=== PATIENT | female | born 1940 | race Caucasian/White ===

== ENCOUNTER 2020-11-29 14:44 | Inpatient (IN) | payer OTHER ==
[~2020-11-29] VITALS: Ht 157.5 cm; Wt 68.9 kg
[2020-11-29 15:08] VITALS: BP 165/65
--- NOTE | 2020-11-29 15:10 | NUR ---
80 y/o F [place] [facility] [place] and desaturation at 0800 this morning. Per EMS, staff reported difficulty breathing since 0800 this morning and desaturation to 87% on 2L NC @ 1130. Patient SpO2 90% on 4L NC. Pt noted with productive cough and rhonchi throughout lung bowen. Pt denies nausea, vomiting, diarrhea, chest pain, headache, blurry vision, fever, chills, body pain. EMS states patient wanted ER evaluation for possible aspiration risk. Pt denies choking on any fluids or food prior to arrival. SpO2 97% on 4L by NC; patient baseline sat @ 86% on room air. RR 14 even/unlabored, BP 165/65. Pt placed into gown and lapidarist. Bed locked in lowest position, side rails x 2, call light in reach. PMH: CVA (hemiplegia) left sided deficits Meds: ASA, atorvastatin, metoprolol A: zofran, PCN
--- NOTE | 2020-11-29 15:20 | NUR ---
Dr. Gutierrez is evaluating patient at bedside
--- NOTE | 2020-11-29 15:39 | NUR ---
Lab at bedside
[2020-11-29 15:55] LABS: BASOPHILS % (AUTO) 0.5 % (0.0-2.0); HEMATOCRIT 32.4 % (36-48); HEMOGLOBIN 10.7 g/dL (12.0-16.0); LYMPHOCYTES # (AUTO) 0.8 K/uL (2.5-16.5); LYMPHOCYTES % (AUTO) 11.4 % (20.5-51.1); MEAN CORPUSCULAR HEMOGLOBIN 28 pg (27-31); MEAN CORPUSCULAR HGB CONC 33 g/dL (33-37); MEAN CORPUSCULAR VOLUME 83.9 fL (80-94); MONOCYTES # (AUTO) 0.9 K/uL (0.8-1.0); MONOCYTES % (AUTO) 11.8 % (1.7-9.3); NEUTROPHILS # (AUTO) 5.7 K/uL (1.8-7.7); NEUTROPHILS % (AUTO) 76.3 % (42.2-75.2); PLATELET COUNT (AUTO) 273 K/uL (140-450); RED BLOOD CELL COUNT(AUTO) 3.86 MIL/uL (4.20-5.40); RED CELL DISTRIBUTION WIDTH 15.1 % (11.6-13.7); WHITE BLOOD COUNT (AUTO) 7.4 K/uL (4.8-10.8)
[2020-11-29 16:11] LABS: ALBUMIN 2.8 g/dL (3.4-5.0); ANION GAP 10.4 (8-16); ASPARTATE AMINOTRANSFERASE 47 U/L (15-37); CARBON DIOXIDE 35.2 mmol/L (21-32); CHLORIDE 95 mmol/L (98-107); CREATININE 0.6 mg/dL (0.6-1.3); GLUCOSE 108 mg/dL (74-106); SODIUM SERUM 138 mmol/L (136-145); TOTAL BILIRUBIN 0.7 mg/dL (0.0-1.0); UREA NITROGEN, BLOOD 17 mg/dL (7-18)
[2020-11-29 16:15] LABS: POTASSIUM 2.6 mmol/L (3.5-5.1)
--- NOTE | 2020-11-29 16:40 | NUR ---
Patient resting in position of comfort with youth nutritional monitor in place. Denies SOB, chest pain, nausea. Bed locked in lowest position, side rails x 1
[2020-11-29] MEDS ORDERED: POTASSIUM CHLORIDE 10 MEQ TABER PO ONE (17:00)
[2020-11-29] MEDS ORDERED: AZITHROMYCIN 250 MG TAB PO ONE (17:00)
[2020-11-29] MEDS ORDERED: POTASSIUM CHL 20 MEQ/NACL 0.9% 1,000 ML IV ONE (17:00)
[2020-11-29] MEDS ORDERED: cefTRIAXone 1,000 MG VIAL ONE (17:10)
--- NOTE | 2020-11-29 18:30 | NUR ---
Spoke with Janine and provided status update; Janine made aware pt wants her to visit.
--- NOTE | 2020-11-29 18:59 | NUR ---
Dr. Gutierrez is reevaluating patient at bedside with Janine (daughter) at bedside.
[2020-11-29] MEDS ORDERED: METO25TE2 PO (19:27)
[2020-11-29] MEDS ORDERED: ASPI-1822 PO (19:27)
[2020-11-29] MEDS ORDERED: ATOR10TA PO (19:27)
[2020-11-29] MEDS ORDERED: DOCUSATE SODIUM 100 MG GELCAP PO PRN (20:00)
[2020-11-29] MEDS ORDERED: LORazepam 2 MG/ML VIAL IVP PRN (20:00)
[2020-11-29] MEDS ORDERED: ACETAMINOPHEN 325 MG TAB PO PRN (20:00)
[2020-11-29] MEDS ORDERED: MORPHINE SULFATE 2 MG/ML SYR IVP PRN (20:00)
[2020-11-29] MEDS ORDERED: ZOLPIDEM 10 MG TAB PO PRN (20:00)
[2020-11-29] MEDS ORDERED: HEPARIN PER PHARMACY MC PRN (20:00)
--- NOTE | 2020-11-29 20:00 | NUR ---
RESTING COMFORTABLY WITH DAUGHTER AT BEDSIDE. WARM BLANKET GIVEN
--- NOTE | 2020-11-29 22:00 | NUR ---
RESTING COMFORTABLY WITH HOB ELEVATED. O2 SAT REMAINS 94% ON 4L FIO2
[2020-11-29] MEDS ORDERED: metroNIDAZOLE 500 MG/NS PREMIX 100 ML IV ONE (22:22)
[2020-11-29] MEDS: METOPROLOL SUCCINATE 50 MG TABER PO SCH (22:34)
[2020-11-29] MEDS: ATORVASTATIN 20 MG TAB PO SCH (22:34)
[2020-11-29] MEDS: metroNIDAZOLE 250 MG/NS PREMIX 50 ML IV SCH (22:35)
[2020-11-29] MEDS: NACL 0.9% 1,000 ML IV SCH (22:37)
[2020-11-29 23:12] LABS: PROTHROMBIN TIME 11.6 secs (10.8-13.4)
[2020-11-30] MEDS: hePARIN / DEXT 5% PREMIX 250 ML IV SCH ×2 (01:08→09:12)
--- NOTE | 2020-11-30 02:00 | NUR ---
RESTING COMFORTABLY, REPOSITIONED. HEPARIN GTT CONTINUES
--- NOTE | 2020-11-30 04:00 | NUR ---
OCCASIIONAL THICK, CONGESTED COUGH NOTED
[2020-11-30] MEDS: metroNIDAZOLE 250 MG/NS PREMIX 50 ML IV SCH (05:21)
[2020-11-30] MEDS ORDERED: metroNIDAZOLE 500 MG/NS PREMIX 100 ML IV ONE (05:21)
[2020-11-30] MEDS: ALBUTEROL SULFATE/IPRATROPIU 3 ML SOL IH PRN ×2 (06:56→19:30)
--- NOTE | 2020-11-30 07:12 | NUR ---
RECEIVED REPORT FROM FAUSTINO SOLIZ. TRANSFER OF CARE AT THIS TIME.
--- NOTE | 2020-11-30 07:18 | NUR ---
PT RESTING, HOB ELEVATED FOR COMFORT, VSS, WILL CONTINUE TO MONIOTOR.
--- NOTE | 2020-11-30 07:20 | NUR ---
STRAIGHT CATHED FOR UA, URINE SENT TO LAB
[2020-11-30 07:27] LABS: BASOPHILS % (AUTO) 0.4 % (0.0-2.0); HEMATOCRIT 31.3 % (36-48); HEMOGLOBIN 10.3 g/dL (12.0-16.0); LYMPHOCYTES # (AUTO) 1.1 K/uL (2.5-16.5); LYMPHOCYTES % (AUTO) 15.7 % (20.5-51.1); MEAN CORPUSCULAR HEMOGLOBIN 28 pg (27-31); MEAN CORPUSCULAR HGB CONC 33 g/dL (33-37); MEAN CORPUSCULAR VOLUME 85.4 fL (80-94); MONOCYTES # (AUTO) 0.7 K/uL (0.8-1.0); MONOCYTES % (AUTO) 9.1 % (1.7-9.3); NEUTROPHILS # (AUTO) 5.4 K/uL (1.8-7.7); NEUTROPHILS % (AUTO) 74.8 % (42.2-75.2); PLATELET COUNT (AUTO) 253 K/uL (140-450); RED BLOOD CELL COUNT(AUTO) 3.67 MIL/uL (4.20-5.40); WHITE BLOOD COUNT (AUTO) 7.2 K/uL (4.8-10.8)
[2020-11-30 07:44] LABS: ANION GAP 10.8 (8-16); CARBON DIOXIDE 32.2 mmol/L (21-32); CHLORIDE 101 mmol/L (98-107); CREATININE 0.6 mg/dL (0.6-1.3); GLUCOSE 100 mg/dL (74-106); SODIUM SERUM 141 mmol/L (136-145); UREA NITROGEN, BLOOD 17 mg/dL (7-18)
--- NOTE | 2020-11-30 08:24 | NUR ---
GAVE REPORT TO FAUSTINO JEWELL FOR PENDING TRANSFER 10MINUTES.
--- NOTE | 2020-11-30 08:59 | NUR ---
Patient will be admitted to care of DR. REGALADO. Admited to TELE. Will go to room 120A. Belongings list completed. Report to FAUSTINO JEWELL.
--- NOTE | 2020-11-30 09:00 | NUR ---
Patient admitted to tele floor rm 120A from ED via rney. Patient transferred to bed with mod assist. Right hand IV 22G intact and running heparin @ 750 unit/hr. Patient is alert and oriented x 4, respirations even & nonlabored on O2 @ 4L/min. Oriented patient to room and unit, able to verbalized understanding. Call light placed within reach.
--- NOTE | 2020-11-30 09:15 | NUR ---
Heparin drip rate adjusted to 600unit/hr per protocol.
[2020-11-30] MEDS: ASPIRIN 81 MG TAB.CHEW PO SCH (10:12)
[2020-11-30] MEDS: METOPROLOL SUCCINATE 50 MG TABER PO SCH ×2 (10:12→21:20)
[2020-11-30 12:00] VITALS: BP 157/64
[2020-11-30] MEDS: NACL 0.9% 1,000 ML IV SCH (12:50)
[2020-11-30] MEDS ORDERED: metroNIDAZOLE 250 MG TAB PO SCH (14:06)
[2020-11-30] MEDS: AZITHROMYCIN 500 MG in DEXTROSE 5% 250 ML IV SCH (14:56)
--- NOTE | 2020-11-30 15:04 | NUR ---
PATIENT HAS BEEN SCREENED AND CATEGORIZED MODERATE NUTRITION RISK. PATIENT WILL BE SEEN WITHIN 3-5 DAYS OF ADMISSION. 12/02/20 12/04/[address]
--- NOTE | 2020-11-30 15:14 | NUR ---
DC PLANNING: FELICIA SPOKE WITH THE PATIENT AND HER DAUGHTER JERMAINE AT BEDSIDE. THE PATIENT WAS ALERT BUT NON-VERBAL SECONDARY TO RECENT CVA AND PNA. [place] CUR[place] [facility] FOR THREE WEEKS FOR REHAB POST CVA. SHE REQUIRES STANDBY ASSIST WHEN AMBULATING AND USES A FWW AND IS ABLE TO TOLERATE 75 FEET. SHE REQUIRES ASSISTANCE WITH ADL'S AND WILL RET[place] [facility] [place] SHE IS STABLE FOR DISCHARGE. JERMAINE DOES PLAN ON TAKING HER MOTHER HOME ONCE SHE COMPLETES HER REH[place] [facility] CM WILL FOLLOW FOR NEEDS. Addendum: 12/04/[address] CM DC PLANNING: FELICIA SPOKE WITH RYANN [place] [facility] [place]ARDING THE [place] O2 USE, STATES [facility] [place]IENT BACK ON 5-6 LITERS NC. THE PATIENT IS CURRENTLY AT 8L NC, DESATTED TO 83% THIS MORNING ON RA. FELICIA SPOKE WITH DR CHAVEZ TO ENDORSE O2 FLOW FOR [facility], IN AGREEMENT WITH RT WEANING PATIENT DOWN. FELICIA THEN SPOKE WITH RT DENNIS, HE WILL START LOWERING PATIENTS O2 TO TOLERANCE. CM WILL FOLLOW FOR NEEDS. Addendum: 12/06/[address] CM DC PLANNING: FELICIA SPOKE WITH THE PATIENTS DAUGHTER JERMAINE AT BEDSIDE REGARDING REFERRING THE PATIENT TO [facility]. THE PATIENT IS ON O2 12L, IV ABX AND IS PROGRESSING SLOWLY WITH PHYSICAL THERAPY. JERMAINE IS IN AGREEMENT WITH REFERRING THE PATIENT TO [facility], ORDER RECEIVED, CM FAXED CLINICAL INFORMATION TO [facility]. ALSO SPOKE WITH OBDULIA FROM [facility] TO ENDORSE THE REFERRAL. FELICIA WILL FOLLOW FOR NEEDS. Addendum: 12/07/[address] CM DC PLANNING: FELICIA WAS INFORMED BY DANIEL STEINER [facility] THAT THE PATIENT HAS BEEN ACCEPTED, NOW WAITING FOR A BED. DR. MIKAYLA ZHONG TO FOLLOW, THE PATIENTS DAUGHTER JERMAINE WAS ALSO UPDATED ON THE ARRANGEMENTS. FELICIA WILL FOLLOW FOR NEEDS. Addendum: 12/07/[address] CM DC PLANNING: NO CONFIRMATION OF A BED YET AT [facility]. IF PATIENT DC'S THIS [facility] WILL NEED TO BE CALLED FOR TRANSPORT WITH O2 AND TELEMETRY MONITORING THE PATIENT HAS MEDICARE. [facility]'S NUMBER IS [phone]. FELICIA WILL FOLLOW FOR NEEDS. Addendum: 12/10/20 at [address] CM DC PLANNING: FELICIA SPOKE WITH OBDULIA AT [facility], NO BEDS AVAILABLE YET. UPDATED CLINICALS FAXED TO FELICIA STEINER ALSO UPDATED THE PATIENT AND HER DAUGHTER JERMAINE. THE PATIENT REMAINS AT 8L O2 PER NC, CONTINUES TO WORK WITH P.T.. FELICIA WILL FOLLOW FOR NEEDS. Addendum: 12/11/[address] CM DC PLANNING: THE PATIENT HAS BEEN ASSIGNED A BED AT [facility]. THE CLINICA LIAISON OBDULIA MET WITH THE PATIENT AND HER DAUGHTER JERMAINE AT BEDSIDE TO ANSWER ANY QUESTIONS THEY MIGHT HAVE, BOTH STATE THEY ARE IN AGREEMENT WITH THE PLAN TO TRANSFER TO [facility] TODAY. THE PATIENT IS ASSIGNED ROOM 207C, DR. MIKAYLA ZHONG TO FOLLOW. NUMBER TO CALL REPORT IS [phone], THE PATIENT WILL BE PICKED UP BY [facility] AT 1800, BLS WITH O2 AT 8 L NC. FACILITY PHONE NUMBER AND [employer] SUPERVISOR TIME ENDORSED TO THE PATIENTS FAUSTINO SAAVEDRA CM WILL FOLLOW FOR NEEDS.
--- NOTE | 2020-11-30 15:30 | NUR ---
PTT - 52.9 therapeutic level. Patient remains on heparin drip @ 600 units/hr to right hand. Patient resting in bed, respirations even & nonlabored on O2 @ 4L/min. Call light within reach.
[2020-11-30 16:00] VITALS: BP 146/67
--- NOTE | 2020-11-30 19:00 | NUR ---
Patient received in bed alert and oriented x2. Patient SpO2 95% on 4L NC. Pt noted with productive cough and rhonchi throughout lung bowen. Pt denies nausea, vomiting, diarrhea, chest pain, headache, blurry vision, fever, chills, body pain. Patient requires maximal assistance. patient baseline sat @ 92% on room air. RR 14 even/unlabored. Pt placed into gown and night monitor. Bed locked in lowest position, side rails x 2, call light in reach. Rn educated patient to fall and safety interventions, medical management and Rn plan of care. No acute distress noted. Continued with medical management. No acute distress noted. Vital signs within parameter.
[2020-11-30 20:00] VITALS: BP 138/74
[2020-11-30] MEDS: ATORVASTATIN 20 MG TAB PO SCH (21:19)
[2020-11-30] MEDS: metroNIDAZOLE 250 MG TAB PO SCH (21:20)
[2020-12-01 02:51] LABS: PROTHROMBIN TIME 11.9 secs (10.8-13.4)
[2020-12-01 04:00] VITALS: BP 132/70
[2020-12-01] MEDS: metroNIDAZOLE 250 MG TAB PO SCH ×3 (05:34→21:45)
[2020-12-01] MEDS: NACL 0.9% 1,000 ML IV SCH ×2 (05:35→22:10)
[2020-12-01 07:01] LABS: ANION GAP 12.7 (8-16); CHLORIDE 101 mmol/L (98-107); CREATININE 0.6 mg/dL (0.6-1.3); GLUCOSE 94 mg/dL (74-106); SODIUM SERUM 141 mmol/L (136-145); UREA NITROGEN, BLOOD 13 mg/dL (7-18)
[2020-12-01 07:02] LABS: BASOPHILS % (AUTO) 0.3 % (0.0-2.0); HEMATOCRIT 28.6 % (36-48); HEMOGLOBIN 9.4 g/dL (12.0-16.0); LYMPHOCYTES # (AUTO) 1.3 K/uL (2.5-16.5); LYMPHOCYTES % (AUTO) 17.7 % (20.5-51.1); MEAN CORPUSCULAR HEMOGLOBIN 28 pg (27-31); MEAN CORPUSCULAR HGB CONC 33 g/dL (33-37); MEAN CORPUSCULAR VOLUME 85.3 fL (80-94); MONOCYTES # (AUTO) 0.7 K/uL (0.8-1.0); NEUTROPHILS # (AUTO) 5.5 K/uL (1.8-7.7); PLATELET COUNT (AUTO) 242 K/uL (140-450); RED BLOOD CELL COUNT(AUTO) 3.35 MIL/uL (4.20-5.40); RED CELL DISTRIBUTION WIDTH 14.9 % (11.6-13.7); WHITE BLOOD COUNT (AUTO) 7.5 K/uL (4.8-10.8)
--- NOTE | 2020-12-01 07:30 | NUR ---
RECEIVED REPORT FROM AM NURSE. PT IN BED WITH HOB ELEVATED. AOX2, ABLE TO MAKE NEEDS KNOWN. NO C/O PAIN, NO RESPIRATORY DISTRESS BUT O2SAT 89% ON 4L NC, RT AT BEDSIDE, PLACED ON SIMPLE MASK 9L, O2SAT BACK TO 96%. PT NON AMBULATORY. BOWEL AND BLADDER INCONTINENT. IV SITE 22G ON R HAND AND 22G ON RFA RUNNING NS AT 60CC/HR, HEPARIN DRIP 600U/HR. SKIN INTACT. SAFETY AND FALL PRECAUTIONS IN PLACE. CALL LIGHT WITHIN REACH. WILL CONTINUE TO MONITOR
[2020-12-01 08:00] VITALS: BP 140/72
[2020-12-01 08:02] LABS: POTASSIUM 2.7 mmol/L (3.5-5.1)
--- NOTE | 2020-12-01 08:50 | NUR ---
DUE MEDS GIVEN. TOLERATED PO MEDS WELL
[2020-12-01] MEDS: ASPIRIN 81 MG TAB.CHEW PO SCH (09:32)
[2020-12-01] MEDS: METOPROLOL SUCCINATE 50 MG TABER PO SCH ×2 (09:32→21:45)
[2020-12-01] MEDS ORDERED: POTASSIUM CHLORIDE 40 MEQ, LIDOCAINE MPF 1% 25 MG in NACL 0.9% 250 ML IV SCH (10:00)
--- NOTE | 2020-12-01 12:45 | NUR ---
HUONG CARE DONE. TURNED AND REPOSITIONED PT
--- NOTE | 2020-12-01 13:00 | NUR ---
PT IN BED, FAMILY AT BEDSIDE
[2020-12-01] MEDS: AZITHROMYCIN 500 MG in DEXTROSE 5% 250 ML IV SCH (15:16)
--- NOTE | 2020-12-01 15:22 | NUR ---
PT ASLEEP IN BED AT THIS TIME. NO RESPIRATORY DISTRESS, FLACC 0
[2020-12-01] MEDS: hePARIN / DEXT 5% PREMIX 250 ML IV SCH (15:23)
[2020-12-01 16:00] VITALS: BP 148/69
--- NOTE | 2020-12-01 18:00 | NUR ---
INSERTED IV ON RAC 20G FOR CT ANGIO CHEST
--- NOTE | 2020-12-01 19:00 | NUR ---
PATIENT RECEIVED IN BED CALM AND COOPERATIVE, AOX2, ABLE TO MAKE NEEDS KNOWN. NO C/O PAIN, NO RESPIRATORY DISTRESS NOTED. O2SAT 89% ON 4L NC, RT AT BEDSIDE, PLACED ON SIMPLE MASK 9L, O2SAT BACK TO 96%. PT NON AMBULATORY. BOWEL AND BLADDER INCONTINENT. IV SITE 22G ON R HAND AND 22G ON RFA RUNNING NS AT 60CC/HR, HEPARIN DRIP 600U/HR. PATIENT CALM AND COOPERATIVE. REQUIRES ASSISTANCE WITH ADL'S. SKIN INTACT. SAFETY AND FALL PRECAUTIONS IN PLACE. CALL LIGHT WITHIN REACH. WILL CONTINUE TO MONITOR. NO ACUTE DISTRESS NOTED.
[2020-12-01] MEDS: ALBUTEROL SULFATE/IPRATROPIU 3 ML SOL IH PRN (19:36)
[2020-12-01] MEDS: ATORVASTATIN 20 MG TAB PO SCH (21:45)
[2020-12-02] VITALS: BP 136/70
[2020-12-02] MEDS: POTASSIUM CHLORIDE 10 MEQ TABER PO PRN (05:01)
[2020-12-02] MEDS: MAG SULF 2000 MG/WATER PREMIX 50 ML IV PRN (05:17)
[2020-12-02] MEDS: metroNIDAZOLE 250 MG TAB PO SCH ×3 (05:50→21:05)
[2020-12-02 06:47] LABS: BASOPHILS % (AUTO) 0.3 % (0.0-2.0); EOSINOPHILS % (AUTO) 0.1 % (0.0-4.0); HEMATOCRIT 29.8 % (36-48); HEMOGLOBIN 9.9 g/dL (12.0-16.0); LYMPHOCYTES # (AUTO) 1.3 K/uL (2.5-16.5); LYMPHOCYTES % (AUTO) 15.6 % (20.5-51.1); MEAN CORPUSCULAR HEMOGLOBIN 28 pg (27-31); MEAN CORPUSCULAR HGB CONC 33 g/dL (33-37); MEAN CORPUSCULAR VOLUME 85.1 fL (80-94); MONOCYTES # (AUTO) 0.7 K/uL (0.8-1.0); MONOCYTES % (AUTO) 8.7 % (1.7-9.3); NEUTROPHILS # (AUTO) 6.3 K/uL (1.8-7.7); NEUTROPHILS % (AUTO) 75.3 % (42.2-75.2); PLATELET COUNT (AUTO) 263 K/uL (140-450); RED CELL DISTRIBUTION WIDTH 14.8 % (11.6-13.7); WHITE BLOOD COUNT (AUTO) 8.3 K/uL (4.8-10.8)
[2020-12-02 06:55] LABS: ANION GAP 12.1 (8-16); CARBON DIOXIDE 29.8 mmol/L (21-32); CHLORIDE 100 mmol/L (98-107); CREATININE 0.5 mg/dL (0.6-1.3); GLUCOSE 96 mg/dL (74-106); SODIUM SERUM 139 mmol/L (136-145); UREA NITROGEN, BLOOD 10 mg/dL (7-18)
[2020-12-02 06:58] LABS: POTASSIUM 2.9 mmol/L (3.5-5.1)
[2020-12-02 08:00] VITALS: BP 160/84
--- NOTE | 2020-12-02 08:22 | NUR ---
PT IS AWAKE ALERT X2 SLEEPING IN THE BED NO VISIBLE SOB NOTED. ON PUREE DIET. PT IS ON HEPARIN DRIP RECEIVING 600 UNITS/HR. POTASSIUM IS 2.9 AND MG 1.4 WILL REPLACE IT. PT HAS IV ACCESS ON RIGHT AC AND RIGHT HAND. POC DISCUSSED AND WILL CONTINUE TO FOLLOW.
[2020-12-02] MEDS: METOPROLOL SUCCINATE 50 MG TABER PO SCH ×2 (09:02→21:04)
[2020-12-02] MEDS: ASPIRIN 81 MG TAB.CHEW PO SCH (09:02)
--- NOTE | 2020-12-02 09:24 | NUR ---
CLARIFIED LAST PTT WITH PHARMACIST AND ADJUSTED DOSE. GAVE 1900 UNITS OF HEPARIN BOLUS AND INCREASED DOSE TO 750 UNITS. NO S/S OF BLEEDING NOTED. WILL CONTINUE TO MONITOR PT FOR BLEEDING
[2020-12-02] MEDS: MAG SULF 2000 MG/WATER PREMIX 100 ML IV SCH ×2 (10:44→12:54)
[2020-12-02] MEDS: POTASSIUM CHLORIDE 10 MEQ TABER PO SCH (10:45)
[2020-12-02] MEDS: NACL 0.9% 1,000 ML IV SCH (14:50)
[2020-12-02] MEDS: AZITHROMYCIN 500 MG in DEXTROSE 5% 250 ML IV SCH (15:05)
[2020-12-02 15:57] LABS: PROTHROMBIN TIME 12.2 secs (10.8-13.4)
[2020-12-02 16:00] VITALS: BP 160/64
--- NOTE | 2020-12-02 19:26 | NUR ---
ENDORSED THE NIGHT NURSE FOR CONTINUITY OF CARE. PT IS STABLE.
[2020-12-02] MEDS: ATORVASTATIN 20 MG TAB PO SCH (21:04)
[2020-12-03 04:00] VITALS: BP 167/64
[2020-12-03] MEDS: metroNIDAZOLE 250 MG TAB PO SCH ×3 (05:58→21:00)
[2020-12-03] MEDS: hePARIN / DEXT 5% PREMIX 250 ML IV SCH ×2 (06:00→23:42)
[2020-12-03 06:27] LABS: BASOPHILS # (AUTO) 0.1 K/uL (0.00-0.22); BASOPHILS % (AUTO) 0.6 % (0.0-2.0); EOSINOPHILS % (AUTO) 0.4 % (0.0-4.0); HEMATOCRIT 30.3 % (36-48); HEMOGLOBIN 10.2 g/dL (12.0-16.0); LYMPHOCYTES # (AUTO) 1.1 K/uL (2.5-16.5); LYMPHOCYTES % (AUTO) 10.9 % (20.5-51.1); MEAN CORPUSCULAR HEMOGLOBIN 29 pg (27-31); MEAN CORPUSCULAR HGB CONC 34 g/dL (33-37); MEAN CORPUSCULAR VOLUME 84.4 fL (80-94); MONOCYTES # (AUTO) 0.8 K/uL (0.8-1.0); MONOCYTES % (AUTO) 7.6 % (1.7-9.3); NEUTROPHILS % (AUTO) 80.5 % (42.2-75.2); PLATELET COUNT (AUTO) 292 K/uL (140-450); RED BLOOD CELL COUNT(AUTO) 3.58 MIL/uL (4.20-5.40)
[2020-12-03 06:47] LABS: ANION GAP 17.4 (8-16); CARBON DIOXIDE 26.5 mmol/L (21-32); CHLORIDE 98 mmol/L (98-107); CREATININE 0.3 mg/dL (0.6-1.3); GLUCOSE 95 mg/dL (74-106); POTASSIUM 3.9 mmol/L (3.5-5.1); SODIUM SERUM 138 mmol/L (136-145); UREA NITROGEN, BLOOD 7 mg/dL (7-18)
[2020-12-03] MEDS: NACL 0.9% 1,000 ML IV SCH (06:54)
--- NOTE | 2020-12-03 07:40 | NUR ---
Assumed care last night. A/O able to verbalize needs. Did hernando care. Changed incontinence pad. On Heparin drip. She has had 2 therapeutic readings. Next PTT shall at 2300 tonight. Will endorse to AM FAUSTINO.
--- NOTE | 2020-12-03 08:04 | NUR ---
RECEIVED REPORT FROM TRANSISTOR TESTER NURSE. PT IN BED WITH HOB ELEVATED. AOX2, ABLE TO MAKE NEEDS KNOWN. NO C/O PAIN, NO RESPIRATORY DISTRESS O2SAT 94% ON 8L NC, AND SIMPLE MASK 9L. PT NON AMBULATORY. BOWEL AND BLADDER INCONTINENT. IV SITE 22G ON R HAND AND 22G IN AC, AND 22G ON RFA RUNNING NS AT 60CC/HR, HEPARIN DRIP 600U/HR. NEXT HEPARIN THERAPEUTIC LEVEL WILL BE AT 23;00 TONIGHT. SKIN INTACT. SAFETY AND FALL PRECAUTIONS IN PLACE. CALL LIGHT WITHIN REACH. ALL SAFETY MEASURES ON PLACE
--- NOTE | 2020-12-03 08:11 | NUR ---
TITRATED NC TO 8L AND SIMPLE MASK REMAINS AT 8L. SPO2 92%. PT COACHED ON DEEP BREATHING EXERCISES. WILL CONTINUE TO MONITOR.
[2020-12-03] MEDS: lisinopriL 20 MG TAB PO SCH (09:00)
[2020-12-03] MEDS: POTASSIUM CHLORIDE 10 MEQ TABER PO SCH ×2 (09:00→21:00)
[2020-12-03] MEDS: ASPIRIN 81 MG TAB.CHEW PO SCH (09:00)
[2020-12-03] MEDS: METOPROLOL SUCCINATE 50 MG TABER PO SCH (09:01)
--- NOTE | 2020-12-03 09:15 | NUR ---
PT IN BED NO COMPLAINS NO SOD NOTED ATE BREAKFAST, GOT MORNING MEDICATION TOLERATED WELL, ALL SAFETY MEASURES ON PLACE CALLS LIGHT WITHIN REACH
--- NOTE | 2020-12-03 11:05 | NUR ---
PT ON BED NO COMPLAINS. FAMILY MEMBER NEXT TO BED SIDE, ALL SAFETY MEASURES ON PLACE CALS LIGHT WITHIN REACH
--- NOTE | 2020-12-03 13:15 | NUR ---
PT ON BED NO COMPLAINS. FAMILY MEMBER NEXT TO BED SIDE, ALL SAFETY MEASURES ON PLACE CALS LIGHT WITHIN REACH
[2020-12-03] MEDS: AZITHROMYCIN 500 MG in DEXTROSE 5% 250 ML IV SCH (14:45)
--- NOTE | 2020-12-03 15:20 | NUR ---
PT ON BED NO COMPLAINS. PT REMOVED HER SIMPLE MASK EDUCATED THE PT OF THE IMPOTANCE OF KEEPING THE MASK. ALL SAFETY MEASURES ON PLACE CALS LIGHT WITHIN REACH
[2020-12-03 16:00] VITALS: BP 138/71
--- NOTE | 2020-12-03 16:41 | NUR ---
PT ON BED NO COMPLAINS, ALL SAFETY MEASURES ON PLACE CALS LIGHT WITHIN REACH
--- NOTE | 2020-12-03 17:42 | NUR ---
DC PLANNING PATIENT IS A 80-YEAR-OLD FEMALE ADMITTED ON A 11/29/20 FROM THE [facility] ER DUE TO SHORTEST OF BREATH. JUANCARLOS MET WITH PATIENT AT BEDSIDE TO DISCUSS AND GATHER HER COLLATERAL INFORMATION. PATIENT REPORTED LIVING TEMPORALLY AT [facility] ([facility] IN [facility] FOR ABOUT 4 MONTHS NOW, HOWEVER; REPORTED THAT SHE WILL LIKE TO GO BACK HOME AFTER HER DC FROM [facility] TO LIVE WITH HER DAUGHTER JERMAINE WHO IS PATIENT'S EMERGENCY AND HER DECISION MAKER IN ADVANCE DIRECTIVES. PATIENT DISCLOSED SHE ALREADY HAS HE ADVANCE DIRECTIVES AND DECLINED THE INF. PACKET PROVIDED BY JUANCARLOS. PATIENT REPORTED NOT HAVING ANY ISSUES GETTING OR TAKING HER MEDICATIONS. PATIENT STATED THAT SHE HAS DME AT HOME, A WALKER AND A WHEELCHAIR ONLY. PER PATIENT SHE IS TALKING TO HER DAUGHTER JERMAINE OKEEFE ABOUT WHEN SHE IS DISCHARGE FROM [facility]. PER PATIENT SHE WANTS TO RETURN HOME WITH HER DAUGHTER, HOWEVER; STILL NOT SURE IF SHE WILL BE RETURNING TO [facility]. SW STATED THAT SHE WILL BE ASSISTED WITH TRANSPORTATION BY HER MOTHER WHO WILL PICK HER UP FROM [facility] TO TAKE HER HOME. IF SHE IS NOT RETURNING TO [facility] SW INFORMED HER THAT A FOLLOW UP APPOINTMENT WILL NEED TO BE SCHEDULED. PATIENT AGREED AND REPORTED THAT HER PCP IS MD. AGUIRRE, LAST VISIT SHE HAD WITH WAS ABOUT 2 MONTHS. JUANCARLOS THANK HER FOR HER INF. AND LEFT HER ROOM. JUANCARLOS WILL FOLLOW UP NEEDED.
--- NOTE | 2020-12-03 19:40 | NUR ---
FULL BED SIDE REPORT GIVEN TO VENEER LATHE OPERATOR NURSE
[2020-12-03] MEDS: METOPROLOL 25 MG TAB PO SCH (21:00)
[2020-12-03] MEDS: ATORVASTATIN 20 MG TAB PO SCH (21:00)
[2020-12-03] MEDS: ALBUTEROL SULFATE/IPRATROPIU 3 ML SOL IH PRN (21:57)
--- NOTE | 2020-12-03 22:01 | NUR ---
2151 patient took off her oxygen. room air sats were 64%. placed patient back on her oxygen and patient given a breathing tx. told pt to keep her oxygen on
[2020-12-04] MEDS: NACL 0.9% 1,000 ML IV SCH ×2 (00:10→17:16)
--- NOTE | 2020-12-04 02:05 | NUR ---
0120 PATIENT KEEPS TAKING HER O2 OFF. PT IS AWARE SHE NEEDS TO WEAR IT
[2020-12-04] MEDS: metroNIDAZOLE 250 MG TAB PO SCH ×3 (05:00→21:26)
[2020-12-04 07:25] LABS: BASOPHILS # (AUTO) 0.1 K/uL (0.00-0.22); BASOPHILS % (AUTO) 0.6 % (0.0-2.0); EOSINOPHILS % (AUTO) 0.1 % (0.0-4.0); HEMATOCRIT 28.4 % (36-48); HEMOGLOBIN 9.3 g/dL (12.0-16.0); LYMPHOCYTES # (AUTO) 1.2 K/uL (2.5-16.5); LYMPHOCYTES % (AUTO) 12.3 % (20.5-51.1); MEAN CORPUSCULAR HEMOGLOBIN 28 pg (27-31); MEAN CORPUSCULAR HGB CONC 33 g/dL (33-37); MEAN CORPUSCULAR VOLUME 85.3 fL (80-94); MONOCYTES # (AUTO) 0.8 K/uL (0.8-1.0); MONOCYTES % (AUTO) 7.8 % (1.7-9.3); NEUTROPHILS # (AUTO) 7.8 K/uL (1.8-7.7); NEUTROPHILS % (AUTO) 79.2 % (42.2-75.2); PLATELET COUNT (AUTO) 253 K/uL (140-450); RED BLOOD CELL COUNT(AUTO) 3.32 MIL/uL (4.20-5.40); RED CELL DISTRIBUTION WIDTH 15.1 % (11.6-13.7); WHITE BLOOD COUNT (AUTO) 9.9 K/uL (4.8-10.8)
--- NOTE | 2020-12-04 07:30 | NUR ---
RECEIVED REPORT FROM DIGITAL CONTENT SPECIALIST NURSE FOR CONTINUITY OF CARE. PATIENT STABLE. NO S/S OF DISTRESS. BREATHING SYMMETRICAL. IV FLUIDS NOT RUNNING. IV PUMP BATTERY , HEPARIN DRIP NOT RUNNING FOR UNKNOWN LENGTH OF TIME. WILL FOLLOW UP WITH PHARMACIST, AND NOTIFY MD. CALL LIGHT IN REACH. ALL SAFETY MEASURES IN PLACE.
[2020-12-04 07:34] LABS: ANION GAP 9.8 (8-16); CARBON DIOXIDE 31.8 mmol/L (21-32); CHLORIDE 101 mmol/L (98-107); CREATININE 0.5 mg/dL (0.6-1.3); GLUCOSE 111 mg/dL (74-106); POTASSIUM 3.6 mmol/L (3.5-5.1); SODIUM SERUM 139 mmol/L (136-145); UREA NITROGEN, BLOOD 11 mg/dL (7-18)
[2020-12-04 08:00] VITALS: BP 163/77
--- NOTE | 2020-12-04 08:04 | NUR ---
NOTIFIED ABOUT HEPARIN DRIP. INSTRUCTED TO CALL PHARMACY TO CLARIFY PROTOCOL.
--- NOTE | 2020-12-04 08:06 | NUR ---
CLARIFIED WITH PHARMACIST ELIOT. HEPARIN DRIP AT 750 UNITS/HR, RUNNING PER PROTOCOL.
--- NOTE | 2020-12-04 09:00 | NUR ---
PT RESTING IN BED. TRAY AT BEDSIDE. RT DECREASED O2 FROM 12L TO 8L HUMIDIFIED NC. PATIENT TOLERATING WELL. CALL LIGHT IN REACH. ALL SAFETY MEASURES IN PLACE.
[2020-12-04] MEDS: POTASSIUM CHLORIDE 10 MEQ TABER PO SCH ×2 (09:20→21:28)
[2020-12-04] MEDS: lisinopriL 20 MG TAB PO SCH (09:20)
[2020-12-04] MEDS: ASPIRIN 81 MG TAB.CHEW PO SCH (09:20)
[2020-12-04] MEDS: METOPROLOL 25 MG TAB PO SCH ×2 (09:20→21:27)
--- NOTE | 2020-12-04 09:20 | NUR ---
SPOKE TO PHARMACY, NOTIFIED TO REDRAW PTT AT 1300.
--- NOTE | 2020-12-04 09:23 | NUR ---
NOTIFIED ABOUT HIGH BLOOD PRESSURE TO OBTAIN PRN ORDER. BP 171/69
--- NOTE | 2020-12-04 11:06 | NUR ---
NOTIFIED MD ABOUT HIGH BLOOD PRESSURE 173/78 TO OBTAIN PRN. ORDERS RECEIVED, WILL MEDICATE PER MD ORDERS.
[2020-12-04] MEDS ORDERED: hydrALAZINE 20 MG/ML VIAL IVP PRN (11:10)
[2020-12-04] MEDS: ALBUTEROL SULFATE/IPRATROPIU 3 ML SOL IH PRN ×2 (13:16→19:35)
--- NOTE | 2020-12-04 13:34 | NUR ---
12/04/20 RD INITIAL ASSESSMENT COMPLETED PLEASE REFER TO NUTRITION ASSESSMENT UNDER CARE ACTIVITY FOR ESTIMATED NUTRITIONAL NEEDS. 1. CONTINUE PUREE DIET TOLERATED 2. CONTINUE ENSURE BID 3. ASSIST WITH SETTING UP MEALS 4. ENCOURAGE PO INTAKE OVER 75% 5. RD TO FOLLOW-UP 3-5 DAYS, MODERATE RISK RAFY WRIGHT, JOAN
--- NOTE | 2020-12-04 14:45 | NUR ---
LAB REPORTED PTT 47.2, NO CHANGE IN DRIP RATE PER PROTOCOL. PT STABLE. NO S/S OF DISTRESS. CALL LIGHT IN REACH. ALL SAFETY MEASURES IN PLACE Addendum: 12/04/20 at 1531 by Gaby Benavides RN RN PT CONTINUES HEPARIN DRIP RATE OF 750 UNITS/HOUR
[2020-12-04] MEDS: AZITHROMYCIN 500 MG in DEXTROSE 5% 250 ML IV SCH (15:17)
--- NOTE | 2020-12-04 15:34 | NUR ---
PATIENT REPOSITIONED. INCREASED O2 FROM 8L TO 10L AFTER PT DESAT 86-89%. PATIENT SATURATION NOW 93%. PT STABLE. NO S/S OF DISTRESS. BREATHING SYMMETRICAL. CALL LIGHT IN REACH. ALL SAFETY MEASURES IN PLACE.
[2020-12-04 16:00] VITALS: BP 126/58
--- NOTE | 2020-12-04 17:49 | NUR ---
SPOKE TO PHARMACY, AZITHROMYCIN AND ROCEPHIN WILL BE DISCONTINUED 12/05/20. WILL NOTIFY MD FOR NEW ORDERS.
--- NOTE | 2020-12-04 18:47 | NUR ---
NOTIFIED MD ABOUT DISCONTINUED MEDICATIONS. MD REORDERED AZITHROMYCIN AND ROCEPHIN. DC HEPARIN DRIP PER MD ORDER.
--- NOTE | 2020-12-04 19:37 | NUR ---
ENDORSED PT TO SOLID CENTER WINDER NURSE. PT STABLE. NO S/S OF DISTRESS. CALL LIGHT IN REACH. ALL SAFETY MEASURES IN PLACE.
--- NOTE | 2020-12-04 19:38 | NUR ---
RECEIVED ENDORSEMENT FROM MORNING SHIFT REGARDING CONTINUITY OF CARE. PATIENT STABLE. RESPIRATIONS EVEN WITH CRACKLES NOTED. O2 91% ON 7L HIGH FLOW NC. IV FLUIDS RUNNING ON LEFT FOREARM PER MD ORDER. EDUCATED PATIENT ON MEDICATIONS DUE. PATIENT ACKNOWLEDGED UNDERSTANDING. CALL LIGHT IN REACH. ALL SAFETY MEASURES IN PLACE. WILL CONTINUE WITH CURRENT PLAN OF CARE.
[2020-12-04] MEDS: ATORVASTATIN 20 MG TAB PO SCH (21:30)
--- NOTE | 2020-12-04 21:50 | NUR ---
CHECKED ON PATIENT. STABLE IN BED RESTING. BREATHING SYMMETRICAL. NO SIGNS OF ACUTE RESPIRATORY DISTRESS NOTED AT THIS TIME. DENIES PAIN 0/10. ALL SAFETY MEASURES IN PLACE. CALL LIGHT WITHIN REACH. WILL CONTINUE TO MONITOR.
--- NOTE | 2020-12-04 23:50 | NUR ---
CHECKED ON PATIENT. STABLE IN BED SLEEPING. BREATHING SYMMETRICAL. NO SIGNS OF ACUTE RESPIRATORY DISTRESS NOTED AT THIS TIME. DENIES PAIN 0/10. ALL SAFETY MEASURES IN PLACE. CALL LIGHT WITHIN REACH. WILL CONTINUE TO MONITOR.
[2020-12-05] VITALS: BP 138/76
--- NOTE | 2020-12-05 01:50 | NUR ---
ROUNDED ON PATIENT. STABLE IN BED SLEEPING. BREATHING SYMMETRICAL. NO SIGNS OF ACUTE RESPIRATORY DISTRESS NOTED AT THIS TIME. ALL SAFETY MEASURES IN PLACE. CALL LIGHT WITHIN REACH. WILL CONTINUE TO MONITOR.
--- NOTE | 2020-12-05 03:50 | NUR ---
ASSISTED DONKEY DOCTOR WITH CLEANING UP PATIENT.
--- NOTE | 2020-12-05 04:35 | NUR ---
0420 RN INCREASED FIO2 TO 10LNC DUE TO LOW SATS
--- NOTE | 2020-12-05 04:55 | NUR ---
BP - 172/68, HR -63, MEDICATED WITH APRESOLINE IVP BY FAUSTINO RICHARDSON PER MD ORDER. PATIENT IS RESTING IN BED AND ASYMPTOMATIC.
[2020-12-05] MEDS: metroNIDAZOLE 250 MG TAB PO SCH (05:09)
--- NOTE | 2020-12-05 05:20 | NUR ---
WITH INTERMITTENT COUGHING, UNABLE TO EXPECTORATE PHLEGM. SUCTIONING DONE, ABLE TO OBTAINED SMALL AMOUNT OF WHITE SECRETIONS. HEAD OF BED ELEVATED 40 DEGREES FOR POSTURAL DRAINAGE.
--- NOTE | 2020-12-05 05:55 | NUR ---
SITTING ON BED, ON 02 AT 7 LITERS BY N/C WITH HUMIDIFIER , 02 SAT - 89- 90%. INCREASED TO 10 LITERS, 02 SATURATION INCREASED TO 92%. WITH COUGHING, UNABLE TO EXPECTORATE PHLEGM, TRIED TO SUCTIONED PATIENT BUT REFUSED.
--- NOTE | 2020-12-05 06:58 | NUR ---
Patient's Plan of Care was discussed and reviewed with PRESSING MACHINE TENDER: BILLY ABARCA
--- NOTE | 2020-12-05 07:00 | NUR ---
ENDORSED PATIENT TO MORNING SHIFT FOR CONTINUITY OF CARE. PATIENT IS STABLE.
--- NOTE | 2020-12-05 07:20 | NUR ---
RECEIVE REPORT FROM DRAG DOWN NURSE FOR CONTINUITY OF CARE. PATIENT SLEEPING NO ACUTE DISTRESS NOTED. PATIENT ON 10 L NC. PATIENT SATING AT 91%. CALL LIGHT WITHIN REACH. WILL CONTINUE TO MONITOR
[2020-12-05 08:00] VITALS: BP 135/82
[2020-12-05] MEDS: METOPROLOL 25 MG TAB PO SCH (08:54)
[2020-12-05] MEDS: ASPIRIN 81 MG TAB.CHEW PO SCH (08:54)
[2020-12-05] MEDS: POTASSIUM CHLORIDE 20% 40 MEQ/15 ML UDC GT SCH (08:54)
[2020-12-05] MEDS: lisinopriL 20 MG TAB PO SCH (08:54)
--- NOTE | 2020-12-05 09:06 | NUR ---
PATIENT AWAKE AND ALERT. PATIENT ON 10L NC. PATIENT SATING O2 SATING AT 90%. SUCTIONED PROVIDED FOR PATIENT. SCHEDULED MEDICATION GIVEN. CALL LIGHT WITHIN REACH. WILL CONTINUE TO MONITOR.
[2020-12-05] MEDS: NACL 0.9% 1,000 ML IV SCH ×2 (09:17→22:58)
[2020-12-05] MEDS: ALBUTEROL SULFATE/IPRATROPIU 3 ML SOL IH PRN ×2 (10:01→13:16)
--- NOTE | 2020-12-05 11:26 | NUR ---
PATIENT AWAKE AND ALERT. NO ACUTE DISTRESS NOTED. PATIENT ON 10L O2. SATING AT 92%. CRA AT BEDSIDE. CALL LIGHT WITHIN REACH. SAFETY MONITORS IN PLACE. WILL CONTINUE TO MONITOR.
[2020-12-05] MEDS ORDERED: ALBUTEROL SULFATE/IPRATROPIU 3 ML SOL IH PRN (13:10)
[2020-12-05] MEDS: ALBUTEROL SULFATE/IPRATROPIU 3 ML SOL IH SCH (19:31)
--- NOTE | 2020-12-05 19:31 | NUR ---
RECEIVED ENDORSEMENT FROM MORNING SHIFT ABOUT PATIENT'S CONTINUITY OF CARE. PATIENT STABLE. ABLE TO FOLLOW COMMANDS. ON 5 L NC WITH O2 SAT OF 92%. NO APPARENT S/SX OF ACUTE RESPIRATORY DISTRESS. BREATHING EVEN AND UNLABORED. NO COMPLAINTS OF SOB OR PAIN. RIGHT HAND 20G INTACT/PATENT. LEFT FOREARM 22G INTACT/PATENT WRAPPED IN A BANDAGE TO KEEP IN PLACE. PLAN OF CARE DISCUSSED AND WHITE COMMUNICATION BOARD UPDATED. BED IN LOW/LOCKED POSITION, CALL LIGHT WITHIN REACH. ENCOURAGED PATIENT TO CALL FOR ANY NEEDS/ASSISTANCE. WILL CONTINUE TO MONITOR.
--- NOTE | 2020-12-05 21:20 | NUR ---
PATIENT REQUESTED AMBIEN TO HELP WITH SLEEP. ADMINISTERED AMBIEN 10 MG TAB PER PRN MD ORDER. TOLERATED WELL. NO ADVERSE REACTION NOTED. WILL REASSESS IN AN HOUR.
--- NOTE | 2020-12-05 22:00 | NUR ---
DISCONNECTED IV ON RIGHT HAND 20G AND LEFT FOREARM 22G. LINES NO LONGER FLUSHING. STARTED IV SITE ON RIGHT WRIST 22G. NS RUNNING AT 60 ML/HOUR.
--- NOTE | 2020-12-05 22:20 | NUR ---
REASSESSED PATIENT FOR AMBIEN. PATIENT STILL AWAKE. RECOMMENDED DIMMING LIGHTS AND TURNING OFF TV. REPOSITIONED PATIENT FOR COMFORT. WILL REASSESS IN AN HOUR.
--- NOTE | 2020-12-05 22:45 | NUR ---
PATIENT SOILED. CLEANED PATIENT AND CHANGED GOWN AND BLANKET. REPOSITIONED FOR COMFORT. BED ON LOWEST/LOCKED POSITION. CALL LIGHT WITHIN REACH. WILL CONTINUE TO MONITOR.
--- NOTE | 2020-12-05 23:30 | NUR ---
REASSESSED PATIENT FOR AMBIEN. PATIENT STABLE AND SLEEPING. NO APPARENT SIGNS AND SYMPTOMS OF ACUTE RESPIRATORY DISTRESS. ALL SAFETY MEASURES IN PLACE. CALL LIGHT WITHIN REACH. WILL CONTINUE TO MONITOR.
[2020-12-06] VITALS: BP 163/76
--- NOTE | 2020-12-06 01:40 | NUR ---
CHECKED ON PATIENT. STABLE AND ASLEEP. RESPIRATIONS EVEN AND UNLABORED. NO APPARENT S/SX OF ACUTE RESPIRATORY DISTRESS. DECREASED O2 LITER TO 7. O2 SAT AT 94%. TOLERATING WELL. IVF RUNNING AT 60 ML/HOUR. IV SITE INTACT/PATENT. ALL SAFETY MEASURES IN PLACE. CALL LIGHT WITHIN REACH. WILL CONTINUE TO MONITOR.
--- NOTE | 2020-12-06 03:40 | NUR ---
ROUNDED ON PATIENT. STABLE AND ASLEEP. BREATHING SYMMETRICAL. NO APPARENT S/SX OF ACUTE RESPIRATORY DISTRESS. ON 7 L NC WITH O2 SAT OF 93%. ALL SAFETY MEASURES IN PLACE. CALL LIGHT WITHIN REACH. WILL CONTINUE TO MONITOR.
--- NOTE | 2020-12-06 05:40 | NUR ---
CHECKED ON PATIENT. STABLE AND ASLEEP. RESPIRATIONS EVEN AND UNLABORED. NO APPARENT S/SX OF ACUTE RESPIRATORY DISTRESS. ON 6 L NC WITH O2 SAT OF 91%. ALL SAFETY MEASURES IN PLACE. CALL LIGHT WITHIN REACH. WILL CONTINUE TO MONITOR.
--- NOTE | 2020-12-06 07:10 | NUR ---
ENDORSED PATIENT TO MORNING SHIFT REGARDING CONTINUITY OF CARE. PATIENT IS STABLE.
--- NOTE | 2020-12-06 07:30 | NUR ---
RECEIVED PATIENT CARE AND REPORT FROM [facility] NURSE. PATIENT A&OX4, HIGH FOWLERS IN BED, RECEIVING HIGH FLOW 5L/MIN. NO VISIBLE S/S OF DISTRESS OR DISCOMFORT. NO COMPLAINTS OF PAIN OR SOB. ALL NEEDS HAVE BEEN MET AT THIS TIME.
[2020-12-06] MEDS: ALBUTEROL SULFATE/IPRATROPIU 3 ML SOL IH SCH ×3 (07:40→20:10)
[2020-12-06 08:00] VITALS: BP 176/75
[2020-12-06] MEDS: ASPIRIN 81 MG TAB.CHEW PO SCH (09:38)
[2020-12-06] MEDS: POTASSIUM CHLORIDE 20% 40 MEQ/15 ML UDC GT SCH ×3 (09:39→21:02)
[2020-12-06] MEDS: lisinopriL 20 MG TAB PO SCH (09:39)
[2020-12-06] MEDS: METOPROLOL 25 MG TAB PO SCH ×3 (09:43→21:08)
--- NOTE | 2020-12-06 13:50 | NUR ---
RIGHT WRIST IV DISLODGED AND REMOVED. STARTED NEW IV ON RIGHT FOREARM, 22G, INTACT, CONNECTED TO NORMAL SALINE FLUIDS AT 60ML/HR.
[2020-12-06] MEDS: AZITHROMYCIN 500 MG in DEXTROSE 5% 250 ML IV SCH (15:46)
[2020-12-06 16:00] VITALS: BP 151/95
[2020-12-06] MEDS: NACL 0.9% 1,000 ML IV SCH ×2 (18:38→21:00)
--- NOTE | 2020-12-06 18:38 | NUR ---
1840 NS BAG 1000ML CHANGED SET AT 60ML/HR.
--- NOTE | 2020-12-06 19:26 | NUR ---
FOOD SERVICE CLERK AND I WERE PERFORMING LINEN AND DIAPER CHANGE. NOTICED THAT PERIAREA WAS RED AND IRRITATED. SMALL FLUID-FILLED BUMP ON LEFT INNER THIGH. WILL ENDORSE TO NOC NURSE TO INFORM DOCTOR.
[2020-12-06 20:00] VITALS: BP 169/76
--- NOTE | 2020-12-06 20:00 | NUR ---
NURSE REPORT REPORT OBTAINED FROM [facility] NURSE TAE AT 1915 AND THIS NURSE ASSUMED CARE OF PATIENT. PATIENT WITH HI FLOW O2 VIA NASAL CANNULA. VS TAKEN. AFEB. BP 169/76. IV NS INFUSING AT 60 ML/HR INTO R FA. NO REDNESS OR SWELLING.
[2020-12-06] MEDS: ATORVASTATIN 20 MG TAB PO SCH ×2 (21:00→21:09)
--- NOTE | 2020-12-07 | NUR ---
NURSE CARE VSS. AFEB. NO SXS OF PAIN OR DISTRESS. MOUTH SUCTIONED.
--- NOTE | 2020-12-07 04:00 | NUR ---
NURSE NOTES VSS. AFEB. MEDS CRUSHED AND GIVEN IN APPLE SAUCE. PATIENT REFUSED PO KCL.
--- NOTE | 2020-12-07 06:00 | NUR ---
NURSE NOTES INCONTINENT OF URINE AND PERICARE GIVEN. NS AT 60 M/HR.
[2020-12-07 06:16] LABS: ALBUMIN 2.1 g/dL (3.4-5.0); ANION GAP 8.5 (8-16); ASPARTATE AMINOTRANSFERASE 77 U/L (15-37); CARBON DIOXIDE 30.8 mmol/L (21-32); CHLORIDE 101 mmol/L (98-107); CREATININE 0.5 mg/dL (0.6-1.3); GLUCOSE 99 mg/dL (74-106); MAGNESIUM 1.6 mg/dL (1.8-2.4); PHOSPHORUS 2.8 mg/dL (2.5-4.9); POTASSIUM 3.3 mmol/L (3.5-5.1); SODIUM SERUM 137 mmol/L (136-145); TOTAL BILIRUBIN 0.4 mg/dL (0.0-1.0); UREA NITROGEN, BLOOD 11 mg/dL (7-18)
[2020-12-07 06:30] LABS: BASOPHILS # (AUTO) 0.1 K/uL (0.00-0.22); BASOPHILS % (AUTO) 0.5 % (0.0-2.0); EOSINOPHILS # (AUTO) 0.1 K/uL (0-0.4); HEMATOCRIT 25.7 % (36-48); HEMOGLOBIN 8.5 g/dL (12.0-16.0); LYMPHOCYTES # (AUTO) 1.1 K/uL (2.5-16.5); LYMPHOCYTES % (AUTO) 9.4 % (20.5-51.1); MEAN CORPUSCULAR HEMOGLOBIN 29 pg (27-31); MEAN CORPUSCULAR HGB CONC 33 g/dL (33-37); MEAN CORPUSCULAR VOLUME 85.8 fL (80-94); MONOCYTES % (AUTO) 9.2 % (1.7-9.3); NEUTROPHILS # (AUTO) 9.1 K/uL (1.8-7.7); NEUTROPHILS % (AUTO) 79.9 % (42.2-75.2); PLATELET COUNT (AUTO) 298 K/uL (140-450); RED CELL DISTRIBUTION WIDTH 15.9 % (11.6-13.7); WHITE BLOOD COUNT (AUTO) 11.4 K/uL (4.8-10.8)
[2020-12-07] MEDS: ALBUTEROL SULFATE/IPRATROPIU 3 ML SOL IH SCH ×2 (07:34→13:54)
--- NOTE | 2020-12-07 07:35 | NUR ---
NURSE REPORT AND ENDORSEMENT REPORT GIVEN TO [facility] NURSE LEIDA TO ASSUME CARE OF PATIENT. ALL QUESTIONS ANSWERED.
--- NOTE | 2020-12-07 07:47 | NUR ---
RECEIVED PATIENT CARE AND REPORT FROM [facility] NURSE. PATIENT A&OX3 HIGH , RECEIVING HIGH FLOW 5L/MIN. NO VISIBLE S/S OF DISTRESS OR DISCOMFORT. NO COMPLAINTS OF PAIN OR SOB. BREATHING EVEN UNLABORED, SAT 95 ALL NEEDS HAVE BEEN MET AT THIS TIME.PT HAS IV ON RIGHT FOREARM RUNNING NS 60 ML/H ALL SAFETY MEASURES ON PLACE , CALLS LIGHT WITHI N REACH
[2020-12-07 08:00] VITALS: BP 132/82
[2020-12-07] MEDS: lisinopriL 20 MG TAB PO SCH (08:54)
[2020-12-07] MEDS: METOPROLOL 25 MG TAB PO SCH ×2 (08:54→20:25)
[2020-12-07] MEDS: POTASSIUM CHLORIDE 20% 40 MEQ/15 ML UDC GT SCH ×2 (08:54→20:26)
[2020-12-07] MEDS: ASPIRIN 81 MG TAB.CHEW PO SCH (08:55)
--- NOTE | 2020-12-07 09:05 | NUR ---
PATIENT OM BED, NO COMPLAINS, NO SOD NOTED, PT GIT MORNING MEDICATION ADMINISTRATED, TOLERATED WELL. PT EATING BREAKFAST WITH LETTUCE TRIMMER HELP. CLEANED PATIENT AND CHANGED GOWN AND BLANKET. REPOSITIONED FOR COMFORT. BED ON LOWEST/LOCKED POSITION. CALL LIGHT WITHIN REACH. ALL SAFETY MEASURES ON PLACE
[2020-12-07] MEDS: MAG SULF 2000 MG/WATER PREMIX 50 ML IV PRN (10:29)
--- NOTE | 2020-12-07 10:35 | NUR ---
PATIENT OM BED, NO COMPLAINS, NO SOD NOTED, PATIENT MG LOW, GOT MEDICATED PRN ORDER, FAMILY MEMBER NEXT TO BED, POC DISCUSSED. REPOSITIONED FOR COMFORT. BED ON LOWEST/LOCKED POSITION. CALL LIGHT WITHIN REACH. ALL SAFETY MEASURES ON PLACE
[2020-12-07] MEDS: NACL 0.9% 1,000 ML IV SCH (11:54)
--- NOTE | 2020-12-07 11:56 | NUR ---
PATIENT OM BED, NO COMPLAINS, NO SOD NOTED,FAMILY MEMBER NEXT TO BED, POC DISCUSSED. REPOSITIONED FOR COMFORT. BED ON LOWEST/LOCKED POSITION. CALL LIGHT WITHIN REACH. ALL SAFETY MEASURES ON PLACE
[2020-12-07] MEDS: AZITHROMYCIN 500 MG in DEXTROSE 5% 250 ML IV SCH (14:16)
--- NOTE | 2020-12-07 14:25 | NUR ---
PATIENT OM BED, NO COMPLAINS, NO SOD NOTED. REPOSITIONED FOR COMFORT. BED ON LOWEST/LOCKED POSITION. CALL LIGHT WITHIN REACH. ALL SAFETY MEASURES ON PLACE
[2020-12-07 16:08] VITALS: BP 129/79
--- NOTE | 2020-12-07 16:14 | NUR ---
PATIENT OM BED, NO COMPLAINS, NO SOD NOTED. REPOSITIONED FOR COMFORT. BED ON LOWEST/LOCKED POSITION. CALL LIGHT WITHIN REACH. ALL SAFETY MEASURES ON PLACE
--- NOTE | 2020-12-07 17:53 | NUR ---
PATIENT OM BED, NO COMPLAINS, NO SOD NOTED. REPOSITIONED FOR COMFORT. BED ON LOWEST/LOCKED POSITION. CALL LIGHT WITHIN REACH. ALL SAFETY MEASURES ON PLACE
[2020-12-07 20:00] VITALS: BP 148/74
--- NOTE | 2020-12-07 20:00 | NUR ---
NURSE REPORT REPORT OBTAINED FROM [facility] NURSE REY AND THIS NURSE ASSUMED CARE OF PATIENT. VSS. AFEB.
[2020-12-07] MEDS: ATORVASTATIN 20 MG TAB PO SCH (20:26)
--- NOTE | 2020-12-08 | NUR ---
NURSE NOTES PATIENT MED SURG. NO VS TAKEN AT MN. AWAKE BUT REFUSING TO TAKE POTASSIUM LIQUID. MESSAGE SENT TO NICHOLE KELLEY.
--- NOTE | 2020-12-08 04:00 | NUR ---
NURSE NOTES VSS. AFEB. NO C/O PAIN OR DISCOMFORT.
[2020-12-08] MEDS: NACL 0.9% 1,000 ML IV SCH ×2 (04:30→20:11)
[2020-12-08 06:53] LABS: BASOPHILS # (AUTO) 0.1 K/uL (0.00-0.22); BASOPHILS % (AUTO) 0.4 % (0.0-2.0); HEMATOCRIT 27.2 % (36-48); HEMOGLOBIN 8.8 g/dL (12.0-16.0); LYMPHOCYTES # (AUTO) 1.2 K/uL (2.5-16.5); LYMPHOCYTES % (AUTO) 9.2 % (20.5-51.1); MEAN CORPUSCULAR HEMOGLOBIN 28 pg (27-31); MEAN CORPUSCULAR HGB CONC 32 g/dL (33-37); MONOCYTES # (AUTO) 1.2 K/uL (0.8-1.0); MONOCYTES % (AUTO) 9.3 % (1.7-9.3); NEUTROPHILS # (AUTO) 10.7 K/uL (1.8-7.7); NEUTROPHILS % (AUTO) 81.1 % (42.2-75.2); PLATELET COUNT (AUTO) 325 K/uL (140-450); RED BLOOD CELL COUNT(AUTO) 3.16 MIL/uL (4.20-5.40); RED CELL DISTRIBUTION WIDTH 15.8 % (11.6-13.7); WHITE BLOOD COUNT (AUTO) 13.2 K/uL (4.8-10.8)
[2020-12-08 06:54] LABS: ALBUMIN 2.3 g/dL (3.4-5.0); ANION GAP 12.9 (8-16); ASPARTATE AMINOTRANSFERASE 59 U/L (15-37); CARBON DIOXIDE 27.4 mmol/L (21-32); CHLORIDE 102 mmol/L (98-107); CREATININE 0.6 mg/dL (0.6-1.3); GLUCOSE 109 mg/dL (74-106); MAGNESIUM 2.1 mg/dL (1.8-2.4); PHOSPHORUS 2.5 mg/dL (2.5-4.9); POTASSIUM 3.3 mmol/L (3.5-5.1); SODIUM SERUM 139 mmol/L (136-145); TOTAL BILIRUBIN 0.4 mg/dL (0.0-1.0); UREA NITROGEN, BLOOD 14 mg/dL (7-18)
--- NOTE | 2020-12-08 07:30 | NUR ---
NURSE REPORT REPORT GIVEN TO DAYSHIFT NURSE YOGESH TO ASSUME CARE OF PATIENT. SBAR GIVEN. ALL QUESTIONS ANSWERED. CLAUDETTE GARCIA RN
--- NOTE | 2020-12-08 07:30 | NUR ---
RECEIVED BEDSIDE REPORT FROM [facility] SHIFT NURSE. PATIENT FOUND SITTING IN BED, ASSISTED BACK TO SUPINE POSITION, HOB 30 DEGREES, ANSWERS TO NAME. BREATHING EVEN AND UNLABORED, NO SIGNS OF ACUTE DISTRESS NOTED ON RA. R FA 22G INFUSING NS @ 60 ML/HR. BED IN LOW POSITION, CALL LIGHT WITHIN REACH, SAFETY MEASURES IN PLACE.
[2020-12-08] MEDS: ALBUTEROL SULFATE/IPRATROPIU 3 ML SOL IH SCH ×3 (07:57→19:25)
[2020-12-08] MEDS: POTASSIUM CHLORIDE 10 MEQ TABER PO PRN (07:57)
[2020-12-08 08:00] VITALS: BP 143/78
[2020-12-08] MEDS: POTASSIUM CHLORIDE 20% 40 MEQ/15 ML UDC GT SCH ×2 (09:18→20:09)
[2020-12-08] MEDS: methylPREDNISolone SS 40 MG/ML VIAL IVP SCH ×2 (09:18→20:10)
[2020-12-08] MEDS: ASPIRIN 81 MG TAB.CHEW PO SCH (09:18)
[2020-12-08] MEDS: lisinopriL 20 MG TAB PO SCH (09:19)
[2020-12-08] MEDS: METOPROLOL 25 MG TAB PO SCH ×2 (09:19→20:11)
--- NOTE | 2020-12-08 11:54 | NUR ---
PATIENT IN ROOM WITH FAMILY, GRANDDAUGHTER AT BEDSIDE. NO SIGNS OF ACUTE DISTRESS NOTED.
--- NOTE | 2020-12-08 11:56 | NUR ---
12/08/20 RD FOLLOW UP COMPLETED PLEASE REFER TO NUTRITION ASSESSMENT UNDER CARE ACTIVITY FOR ESTIMATED NUTRITIONAL NEEDS. 1. CONTINUE PUREE DIET TOLERATED 2. CONTINUE ENSURE BID 3. ASSIST WITH SETTING UP MEALS 4. ENCOURAGE PO INTAKE OVER 75% 5. RD TO FOLLOW-UP 3-5 DAYS, MODERATE RISK ASMITA SEBASTIAN, JOAN
--- NOTE | 2020-12-08 13:30 | NUR ---
PATIENT IN ROOM WITH DAUGHTER. AWAKE AND ALERT TO SELF AND FAMILY. DENIES PAIN OR DISCOMFORT, NO SIGNS OF ACUTE DISTRESS NOTED. ALL NEEDS MET.
[2020-12-08] MEDS: AZITHROMYCIN 500 MG in DEXTROSE 5% 250 ML IV SCH (15:50)
[2020-12-08 16:00] VITALS: BP 133/82
--- NOTE | 2020-12-08 16:02 | NUR ---
PATIENT SLEEPING SUPINE IN BED, HOB 30 DEGREES. BREATHING EVEN AND UNLABORED, NO SIGNS OF ACUTE DISTRESS NOTED.
--- NOTE | 2020-12-08 16:45 | NUR ---
PT WAS SEEN FOR DYSPHAGIA. PT WAS ABLE TO SAFELY SWALLOW PUREE DIET WITH NTL. MILD COUGH FOR THIN LIQUID. RECOMMENDATION PUREE DIET WITH NTL
--- NOTE | 2020-12-08 19:30 | NUR ---
ENDORSED TO NIGHTSHIFT NURSE FOR CONTINUITY OF CARE. PATIENT STABLE AT THIS TIME.
[2020-12-08 20:00] VITALS: BP 151/54
[2020-12-08] MEDS: ATORVASTATIN 20 MG TAB PO SCH (20:10)
[2020-12-09 06:10] LABS: BASOPHILS % (AUTO) 0.1 % (0.0-2.0); HEMATOCRIT 25.7 % (36-48); HEMOGLOBIN 8.6 g/dL (12.0-16.0); LYMPHOCYTES # (AUTO) 0.5 K/uL (2.5-16.5); MEAN CORPUSCULAR HEMOGLOBIN 29 pg (27-31); MEAN CORPUSCULAR HGB CONC 34 g/dL (33-37); MEAN CORPUSCULAR VOLUME 86.2 fL (80-94); MONOCYTES # (AUTO) 0.2 K/uL (0.8-1.0); MONOCYTES % (AUTO) 1.9 % (1.7-9.3); NEUTROPHILS # (AUTO) 9.6 K/uL (1.8-7.7); PLATELET COUNT (AUTO) 307 K/uL (140-450); RED BLOOD CELL COUNT(AUTO) 2.98 MIL/uL (4.20-5.40); RED CELL DISTRIBUTION WIDTH 15.9 % (11.6-13.7); WHITE BLOOD COUNT (AUTO) 10.4 K/uL (4.8-10.8)
[2020-12-09 06:36] LABS: ALBUMIN 2.2 g/dL (3.4-5.0); ANION GAP 9.8 (8-16); ASPARTATE AMINOTRANSFERASE 50 U/L (15-37); CARBON DIOXIDE 30.1 mmol/L (21-32); CHLORIDE 104 mmol/L (98-107); CREATININE 0.5 mg/dL (0.6-1.3); GLUCOSE 147 mg/dL (74-106); MAGNESIUM 1.9 mg/dL (1.8-2.4); PHOSPHORUS 2.9 mg/dL (2.5-4.9); POTASSIUM 3.9 mmol/L (3.5-5.1); SODIUM SERUM 140 mmol/L (136-145); TOTAL BILIRUBIN 0.4 mg/dL (0.0-1.0); UREA NITROGEN, BLOOD 13 mg/dL (7-18)
[2020-12-09 07:13] LABS: LYMPHOCYTES % (AUTO) 5.3 % (20.5-51.1); NEUTROPHILS % (AUTO) 92.7 % (42.2-75.2)
[2020-12-09] MEDS: ALBUTEROL SULFATE/IPRATROPIU 3 ML SOL IH SCH ×3 (07:18→19:05)
[2020-12-09 08:00] VITALS: BP 123/52
[2020-12-09] MEDS: methylPREDNISolone SS 40 MG/ML VIAL IVP SCH ×2 (08:58→20:55)
[2020-12-09] MEDS: lisinopriL 20 MG TAB PO SCH (08:59)
[2020-12-09] MEDS: POTASSIUM CHLORIDE 20% 40 MEQ/15 ML UDC GT SCH ×2 (08:59→20:56)
[2020-12-09] MEDS: ASPIRIN 81 MG TAB.CHEW PO SCH (08:59)
[2020-12-09] MEDS: METOPROLOL 25 MG TAB PO SCH ×2 (09:01→21:08)
--- NOTE | 2020-12-09 10:32 | NUR ---
RECEIVED REPORT FROM HOSE TENDER NURSE. PT STABLE. NO S/S OF DISTRESS. CALL LIGHT IN REACH. ALL SAFETY MEASURES IN PLACE.
--- NOTE | 2020-12-09 12:12 | NUR ---
PT RESTING IN BED. ASSISTED PT IN REINSERTING LOWER DENTURES. LUNCH AT BEDSIDE. PT STABLE. NO S/S OF DISTRESS. CALL LIGHT IN REACH. ALL SAFETY MEASURES IN PLACE.
[2020-12-09] MEDS: NACL 0.9% 1,000 ML IV SCH ×2 (13:35→21:09)
--- NOTE | 2020-12-09 14:51 | NUR ---
PT RESTING IN BED. PT STABLE. NO S/S OF DISTRESS. BREATHING SYMMETRICAL. CALL LIGHT IN REACH. ALL SAFETY MEASURES IN PLACE.
[2020-12-09 16:00] VITALS: BP 134/60
--- NOTE | 2020-12-09 17:06 | NUR ---
PT RESTING IN BED. PT DENIES PAIN AT THIS TIME. PT STABLE. NO S/S OF DISTRESS. BREATHING SYMMETRICAL. CALL LIGHT IN REACH. ALL SAFETY MEASURES IN PLACE.
--- NOTE | 2020-12-09 19:24 | NUR ---
ENDORSED PT TO LOCOMOTIVE ENGINEER NURSE. PT STABLE. NO S/S OF DISTRESS. BREATHING SYMMETRICAL. CALL LIGHT IN REACH. ALL SAFETY MEASURES IN PLACE. O2 8L HIGH FLOW NC. IV RUNNING PER MD ORDER
[2020-12-09 20:00] VITALS: BP 138/59
--- NOTE | 2020-12-09 21:00 | NUR ---
NURSE NOTES VSS. AFEB. IV NS AT 60 ML/HR. NO C/O PAIN OR DISCOMFORT. MEDS CRUSHED AND GIVEN IN APPLE SAUCE AND ASLO THE KCL LIQUID. NEEDS TO GIVE SMALL AMOUNT IF KCL IN APPLE SAUCE AND SPOON FEED HER THE KCL.
[2020-12-09] MEDS: ATORVASTATIN 20 MG TAB PO SCH (21:08)
[2020-12-10 04:00] VITALS: BP 146/69
--- NOTE | 2020-12-10 05:00 | NUR ---
NURSE NOTES VSS. AFEB . NO AM MEDS TO GIVE. NS 1 LITER HUNG AND AT 60 ML/HR. INCONTINENT OF URINE. CLEANSED.
[2020-12-10 06:19] LABS: BASOPHILS % (AUTO) 0.3 % (0.0-2.0); EOSINOPHILS # (AUTO) 0.1 K/uL (0-0.4); EOSINOPHILS % (AUTO) 0.5 % (0.0-4.0); HEMATOCRIT 24.1 % (36-48); HEMOGLOBIN 7.8 g/dL (12.0-16.0); LYMPHOCYTES # (AUTO) 1.1 K/uL (2.5-16.5); LYMPHOCYTES % (AUTO) 8.6 % (20.5-51.1); MEAN CORPUSCULAR HEMOGLOBIN 28 pg (27-31); MEAN CORPUSCULAR HGB CONC 32 g/dL (33-37); MEAN CORPUSCULAR VOLUME 86.8 fL (80-94); MONOCYTES # (AUTO) 0.6 K/uL (0.8-1.0); MONOCYTES % (AUTO) 4.8 % (1.7-9.3); NEUTROPHILS # (AUTO) 11.3 K/uL (1.8-7.7); NEUTROPHILS % (AUTO) 85.8 % (42.2-75.2); PLATELET COUNT (AUTO) 339 K/uL (140-450); RED BLOOD CELL COUNT(AUTO) 2.78 MIL/uL (4.20-5.40); RED CELL DISTRIBUTION WIDTH 16.5 % (11.6-13.7); WHITE BLOOD COUNT (AUTO) 13.2 K/uL (4.8-10.8)
[2020-12-10 06:39] LABS: ALBUMIN 2.1 g/dL (3.4-5.0); ANION GAP 8.1 (8-16); ASPARTATE AMINOTRANSFERASE 37 U/L (15-37); CARBON DIOXIDE 29.1 mmol/L (21-32); CHLORIDE 104 mmol/L (98-107); CREATININE 0.5 mg/dL (0.6-1.3); GLUCOSE 130 mg/dL (74-106); MAGNESIUM 1.8 mg/dL (1.8-2.4); PHOSPHORUS 2.3 mg/dL (2.5-4.9); POTASSIUM 4.2 mmol/L (3.5-5.1); SODIUM SERUM 137 mmol/L (136-145); TOTAL BILIRUBIN 0.4 mg/dL (0.0-1.0); UREA NITROGEN, BLOOD 16 mg/dL (7-18)
--- NOTE | 2020-12-10 07:15 | NUR ---
NURSE REPORT REPORT GIVEN DAY SHIFT NURSE LUZ ELENA AND THIS NURSE ASSUMED CARE OF PATIENT. IV NS INFUSING AT 60 ML/HR. PRODUCTIVE COUGH AND PATIENT SUCTIONING HERSELF.
--- NOTE | 2020-12-10 07:20 | NUR ---
RECEIVED REPORT FROM PAINTER SHIPYARD NURSE. PT RESTING IN BED. NO S/S OF DISTRESS. BREATHING SYMMETRICAL. CALL LIGHT IN REACH ALL SAFETY MEASURES IN PLACE. O2 8L HIGH FLOW NC. IV RUNNING PER MD ORDER
[2020-12-10] MEDS: ALBUTEROL SULFATE/IPRATROPIU 3 ML SOL IH SCH ×3 (08:19→19:21)
--- NOTE | 2020-12-10 08:19 | NUR ---
ATTEMPTED TO TITRATE OXYGEN LESS THAN 8L NC, PT DESATURATES TO 80s.
--- NOTE | 2020-12-10 09:32 | NUR ---
PT RESTING IN BED. FAMILY AT BEDSIDE. BREAKFAST AT BEDSIDE. MEDICATIONS GIVEN PER MD ORDER. EDUCATED ON MEDICATIONS. PT VERBALIZED UNDERSTANDING. NO S/S OF DISTRESS. BREATHING SYMMETRICAL. CALL LIGHT IN REACH ALL SAFETY MEASURES IN PLACE. O2 8L NC. IV FLUIDS RUNNING PER MD ORDER.
[2020-12-10] MEDS: methylPREDNISolone SS 40 MG/ML VIAL IVP SCH ×2 (09:37→21:03)
[2020-12-10] MEDS: ASPIRIN 81 MG TAB.CHEW PO SCH (09:47)
[2020-12-10] MEDS: METOPROLOL 25 MG TAB PO SCH ×2 (09:47→21:04)
[2020-12-10] MEDS: lisinopriL 20 MG TAB PO SCH (09:47)
[2020-12-10] MEDS: POTASSIUM CHLORIDE 20% 40 MEQ/15 ML UDC GT SCH ×2 (09:47→21:03)
--- NOTE | 2020-12-10 10:33 | NUR ---
SPOKE TO MD. PT TO BE TITRATED TOLERABLE. PT AWAITING BED FOR TRANSFER TO [place]. NO S/S OF DISTRESS. CALL LIGHT IN REACH. ALL SAFETY MEASURES IN PLACE.
--- NOTE | 2020-12-10 11:59 | NUR ---
PHYSICAL THERAPY AT BEDSIDE. PT TOLERATING WELL. ALL SAFETY MEASURES IN PLACE.
--- NOTE | 2020-12-10 12:34 | NUR ---
SPOKE TO OBDULIA FROM [facility]. INFORMED OBDULIA OF O2 STATUS AND DIET. NOTIFIED PT OF POSSIBLE BED AVAILABILITY BY END OF DAY OR TOMORROW.
--- NOTE | 2020-12-10 13:22 | NUR ---
PT RESTING IN BED. FAMILY AT BEDSIDE. NO S/S OF DISTRESS. BREATHING SYMMETRICAL. CALL LIGHT IN REACH ALL SAFETY MEASURES IN PLACE. O2 8L NC. IV FLUIDS RUNNING PER MD ORDER.
--- NOTE | 2020-12-10 15:26 | NUR ---
PT RESTING IN BED. FAMILY AT BEDSIDE. NO S/S OF DISTRESS. BREATHING SYMMETRICAL. CALL LIGHT IN REACH ALL SAFETY MEASURES IN PLACE. O2 8L NC. IV FLUIDS RUNNING PER MD ORDER. PT GIVEN JUICES.
[2020-12-10 16:00] VITALS: BP 146/60
--- NOTE | 2020-12-10 17:46 | NUR ---
PT RESTING IN BED. NO S/S OF DISTRESS. BREATHING SYMMETRICAL. CALL LIGHT IN REACH. ALL SAFETY MEASURES IN PLACE. O2 8L NC. IV FLUIDS RUNNING PER MD ORDER.
--- NOTE | 2020-12-10 19:23 | NUR ---
ENDORSED PT TO EXTRUDING DEPARTMENT SUPERVISOR NURSE. PT STABLE. NO S/S OF DISTRESS. BREATHING SYMMETRICAL. CALL LIGHT IN REACH. ALL SAFETY MEASURES IN PLACE. IV RUNNING PER MD ORDER. O2 8L NC. RT AT BEDSIDE.
[2020-12-10 20:00] VITALS: BP 143/64
--- NOTE | 2020-12-10 20:00 | NUR ---
NURSE REPORT REPORT OBTAINED FROM [facility] NURSE LUZ ELENA AT 1925 AND THIS NURSE ASSUME CARE OF PATIENT. VSS. AFEB. BP 143/64.
[2020-12-10] MEDS: ATORVASTATIN 20 MG TAB PO SCH (21:04)
--- NOTE | 2020-12-10 21:30 | NUR ---
NURSE NOTES PATIENT TAKING MEDS CRUSHED IN APPLE SAUCE AND WILL TAKE POTASSIUM LIQUID IN SOME APPLE SAUCE. SHE STATED I DRANK ALL OF THIS ENSURE. IT DOES HAVE SOME POTASSIUM IN IT. PATIENT ABLE TO TAKE MOST OF THE LIQUID POTASSIUM. IV NS AT 60 ML/HR INTO R ARM. NO REDNESS OR SWELLING.
[2020-12-10] MEDS: NACL 0.9% 1,000 ML IV SCH (22:50)
[2020-12-11 04:00] VITALS: BP 163/80
--- NOTE | 2020-12-11 04:50 | NUR ---
NURSE NOTES VS TAKEN. BP 163/80. ABLE TO TAKE KCL PO- MOST OF IT, PLUS DRANK ENSURE. LABS DRAWN AT 0450. CHEMISTRY STILL PENDING.
[2020-12-11 06:20] LABS: BASOPHILS % (AUTO) 0.2 % (0.0-2.0); HEMATOCRIT 23.9 % (36-48); HEMOGLOBIN 7.8 g/dL (12.0-16.0); LYMPHOCYTES # (AUTO) 0.8 K/uL (2.5-16.5); LYMPHOCYTES % (AUTO) 5.5 % (20.5-51.1); MEAN CORPUSCULAR HEMOGLOBIN 28 pg (27-31); MEAN CORPUSCULAR HGB CONC 33 g/dL (33-37); MEAN CORPUSCULAR VOLUME 86.3 fL (80-94); MONOCYTES # (AUTO) 0.7 K/uL (0.8-1.0); MONOCYTES % (AUTO) 4.9 % (1.7-9.3); NEUTROPHILS # (AUTO) 13.4 K/uL (1.8-7.7); NEUTROPHILS % (AUTO) 89.4 % (42.2-75.2); PLATELET COUNT (AUTO) 360 K/uL (140-450); RED BLOOD CELL COUNT(AUTO) 2.77 MIL/uL (4.20-5.40); RED CELL DISTRIBUTION WIDTH 16.6 % (11.6-13.7)
[2020-12-11 06:41] LABS: ALBUMIN 2.3 g/dL (3.4-5.0); ANION GAP 11.2 (8-16); ASPARTATE AMINOTRANSFERASE 55 U/L (15-37); CARBON DIOXIDE 27.9 mmol/L (21-32); CHLORIDE 104 mmol/L (98-107); CREATININE 0.5 mg/dL (0.6-1.3); GLUCOSE 127 mg/dL (74-106); MAGNESIUM 1.7 mg/dL (1.8-2.4); PHOSPHORUS 2.2 mg/dL (2.5-4.9); POTASSIUM 4.1 mmol/L (3.5-5.1); SODIUM SERUM 139 mmol/L (136-145); TOTAL BILIRUBIN 0.3 mg/dL (0.0-1.0); UREA NITROGEN, BLOOD 19 mg/dL (7-18)
--- NOTE | 2020-12-11 07:15 | NUR ---
NURSE REPORT REPORT GIVEN TO DAYSTXFT NURSE LUZ ELENA TO ASSUME CARE OF PATIENT. SBAR GIVEN. ALL QUESTIONS ANSWERED. K 4.1.
--- NOTE | 2020-12-11 07:20 | NUR ---
RECEIVED REPORT FROM INTERIOR DESIGNER NURSE. PT STABLE. NO S/S OF DISTRESS. CALL LIGHT IN REACH. ALL SAFETY MEASURES IN PLACE. IV RUNNING PER MD ORDER. O2 7L NC
[2020-12-11] MEDS: ALBUTEROL SULFATE/IPRATROPIU 3 ML SOL IH SCH ×3 (07:26→19:38)
[2020-12-11 08:00] VITALS: BP 160/72
[2020-12-11] MEDS: lisinopriL 20 MG TAB PO SCH (09:00)
[2020-12-11] MEDS: POTASSIUM CHLORIDE 20% 40 MEQ/15 ML UDC GT SCH (09:00)
[2020-12-11] MEDS: METOPROLOL 25 MG TAB PO SCH (09:00)
[2020-12-11] MEDS: methylPREDNISolone SS 40 MG/ML VIAL IVP SCH (09:00)
[2020-12-11] MEDS: ASPIRIN 81 MG TAB.CHEW PO SCH (09:00)
--- NOTE | 2020-12-11 09:54 | NUR ---
PT REFUSED POTASSIUM WITH MORNING MEDS. PT STATED THEY DO NOT LIKE LIQUID FORM. CURRENT POTASSIUM WNL AT 4.1, NO S/S OF DISTRESS. PT TOLERATED ALL OTHER MEDICATIONS GIVEN. EDUCATED ON MEDICATIONS. VERBALIZED UNDERSTANDING. PT AGREED TO FINISH AT LEAST 1 ENSURE, AND WILL TRY TO FINISH 2 FULL ENSURES TODAY. FAMILY AT BEDSIDE. IV FLUIDS RUNNING PER MD ORDER. O2 NC AT 7L. CALL LIGHT IN REACH. ALL SAFETY MEASURES IN PLACE.
[2020-12-11] MEDS: MAG SULF 2000 MG/WATER PREMIX 50 ML IV PRN (09:58)
--- NOTE | 2020-12-11 12:45 | NUR ---
PT IN BED WITH FAMILY AT BEDSIDE. OBDULIA MURRAY [facility] AND CM AT BEDSIDE TO DISCUSS PT TRANSFER PLAN. MD NOTIFIED TO PUT IN DC ORDER. AWAITING ORDERS FOR DISCHARGE. CALL LIGHT IN REACH. ALL SAFETY MEASURES IN PLACE.
[2020-12-11] MEDS ORDERED: LISI20TA29 PO (13:37)
[2020-12-11] MEDS ORDERED: METH40PD15 IVP (13:37)
--- NOTE | 2020-12-11 15:07 | NUR ---
PT RESTING IN BED. NO S/S OF DISTRESS. BREATHING SYMMETRICAL. PT STABLE. CALL LIGHT IN REACH. ALL SAFETY MEASURES IN PLACE.
[2020-12-11 16:00] VITALS: BP 147/72
[2020-12-11] MEDS: NACL 0.9% 1,000 ML IV SCH (16:17)
--- NOTE | 2020-12-11 17:05 | NUR ---
. PT STABLE. NO S/S OF DISTRESS. BREATHING SYMMETRICAL. CALL LIGHT IN REACH. ALL SAFETY MEASURES IN PLACE. IV RUNNING PER MD ORDER. O2 NC 7L. NEW [facility] ORDER CREATED AND ADDED TO PT CHART FOR TRANSPORT. PT CODE STATUS DNR
--- NOTE | 2020-12-11 18:26 | NUR ---
CALLED [facility] AT [phone] TO ENDORSE PATIENT FOR TRANSFER. WAS TOLD TO CALL BACK. PATIENT WILL TRANSFER TO ROOM 207 BED C. PATIENT TO FOLLOW UP WITH DR. ZHONG. [facility] WAS SCHEDULED TO ARRIVE AT 1800 FOR TRANSPORT. [facility] HAS YET TO ARRIVE.
--- NOTE | 2020-12-11 19:05 | NUR ---
SPOKE TO [facility]. PICKUP TIME OF NOW BEFORE 1999. PT READY AND AWAITING TRANSPORT. PT STABLE. DINNER AT BEDSIDE. PT EATING. CALL LIGHT IN REACH. ALL SAFETY MEASURES IN PLACE.
--- NOTE | 2020-12-11 19:21 | NUR ---
ENDORSED PT TO STORAGE MANAGEMENT ARCHITECT NURSE. PT STABLE. NO S/S OF DISTRESS. BREATHING SYMMETRICAL. CALL LIGHT IN REACH. ALL SAFETY MEASURES IN PLACE. IV RUNNING PER MD ORDER. RT AT BEDSIDE FOR BREATHING TREATMENT. PT STILL AWAITING TRANSFER
--- NOTE | 2020-12-11 19:30 | NUR ---
NURSE REPORT REPORT OBTAINED FROM DAY SHIFT NURSE LUZ ELENA AND THIS NURSE ASSUME CARE OF PATIENT. REPORT WAS GIVEN BY HER TO [facility] NURSE. RECEIVED PATIENT AWAKE AND ALERT AND NO C/O PAIN OR DISTRESS. IV NS INFUSING AT 60 ML/HR.
--- NOTE | 2020-12-11 19:31 | NUR ---
REPORT GIVEN TO [facility] NURSE AT [phone]. PT STABLE. NO S/S OF DISTRESS. RN CLAUDETTE TO FACILITATE TRANSFER WITH [facility]
--- NOTE | 2020-12-11 20:17 | NUR ---
DISCHARGE NOTE [facility] HERE TO TAKE PATIENT TO [facility] AND THIS NURSE GAVE REPORT TO [facility] PERSONNEL JACY. IV AND ID BAND DC'D. CATHETER INTACT. 4X4 GAUZE FOLDED AND APPLIED TO SITE. TO [facility] WITH ASSISTANCE OF 3 PERSONS. STABLE CONDITION, BUT DNR STATUS. O2 AT 6 L/MIN PER NASAL CANNULA. CLAUDETTE GARCIA
== END 2020-12-11 20:20 | DRG 871 ==
LOC: MED 14:44 → MTU 19:19
PROVIDERS: ADMIT General Practice; ATTEND General Practice
DX: A41.9 Sepsis, unspecified organism (principal); J69.0 Pneumonitis due to inhalation of food and vomit; I21.A1 Myocardial infarction type 2; J96.01 Acute respiratory failure with hypoxia; C79.51 Secondary malignant neoplasm of bone; C49.9 Malignant neoplasm of connective and soft tissue, unspecified; I69.354 Hemiplegia and hemiparesis following cerebral infarction affecting left non-dominant side; Z66 Do not resuscitate; E11.9 Type 2 diabetes mellitus without complications; E78.5 Hyperlipidemia, unspecified; Z20.822 Contact with and (suspected) exposure to COVID-19; J43.9 Emphysema, unspecified; E83.42 Hypomagnesemia; I10 Essential (primary) hypertension; D63.8 Anemia in other chronic diseases classified elsewhere; E87.6 Hypokalemia; Z88.0 Allergy status to penicillin; Z88.2 Allergy status to sulfonamides; Z88.8 Allergy status to other drugs, medicaments and biological substances; Z79.82 Long term (current) use of aspirin; Z79.899 Other long term (current) drug therapy; Z87.891 Personal history of nicotine dependence
CPT/HCPCS: 36415; 71045; 71275; 80048; 80053; 83036; 83735; 83880; 84100; 84484; 85025; 85610; 85730; 87081; 87804; 92610; 93005; 94640; 96361; 96365; 97110; 97112; 97163-GP; 97530; 99285; G0480; J0360; J0456; J0696; J1644; J2001; J2920; J3475; J3480; J3490; J7030; J7060; Q0092; Q9967